=== PATIENT | female | born 1970 ===

== ENCOUNTER 2021-05-28 12:48 | Inpatient (IN) | payer SELFPAY ==
--- NOTE | 2021-05-28 12:57 | Event Note ---
ED Screening Note ED Screening Note: body swelling for two weeks +SOB +CP +abd pain no fever no v/d +nausea no blood stool PMHx DM, HTN on metformin ran out of glimperide ran out of lisinopril has been out for 3 months This initial assessment/diagnostic orders/clinical plan/treatment(s) is/are subject to change based on patients health status, clinical progression and re- assessment by fellow clinical providers in the ED. Further treatment and workup at subsequent clinical providers discretion. Patient/guardian urged not to elope from the ED as their condition may be serious if not clinically assessed and managed. Initial orders include: labs, EKG, CXR, urine
--- NOTE | 2021-05-28 13:22 | XRay Report ---
CHEST 2 VIEWS INDICATION / CLINICAL INFORMATION: SOB, anasarca. COMPARISON: None available. FINDINGS: SUPPORT DEVICES: None. HEART / MEDIASTINUM: No significant abnormality. LUNGS / PLEURA: There is a small left pleural effusion. ADDITIONAL FINDINGS: No significant additional findings. IMPRESSION: 1. Small left pleural effusion. Signer Name: Lincoln Parra MD Signed: 05/28/2021 1:17 PM Workstation Name: [id number]
[2021-05-28 13:42] LABS: Basophils # (Auto) 0.1 K/mm3 (0.0-0.1); Basophils % (Auto) 1.2 % (0.0-1.8); Eosinophils # (Auto) 0.1 K/mm3 (0.0-0.4); Eosinophils % (Auto) 0.9 % (0.0-4.3); Hematocrit 30.9 % (30.3-42.9); Hemoglobin 10.4 gm/dl (10.1-14.3); Lymphocytes # (Auto) 1.7 K/mm3 (1.2-5.4); Lymphocytes % (Auto) 29.3 % (13.4-35.0); Mean Corpuscular HGB Conc 34 % (30-34); Mean Corpuscular Volume 90 fl (79-97); Monocytes # (Auto) 0.4 K/mm3 (0.0-0.8); Monocytes % (Auto) 7.3 % (0.0-7.3); Platelet Count 379 K/mm3 (140-440); Red Blood Count 3.42 M/mm3 (3.65-5.03)
[2021-05-28 13:50] LABS: INR 0.81 (0.87-1.13); Partial Thromboplastin Time 25.2 Sec. (24.2-36.6)
--- NOTE | 2021-05-28 13:50 | Emergency Department Report ---
ED General Adult HPI - General Chief complaint: Dyspnea/Respdistress Stated complaint: Central chest pain. Left-sided visual loss. Lower extremity swelling. Left leg numbness. Weight gain PUI?: No Time Seen by Provider: 05/28/21 12:54 Source: patient, RN notes reviewed Mode of arrival: Ambulatory Limitations: Physical Limitation - History of Present Illness Initial comments: The patient was evaluated in the emergency department for symptoms described in the history of present illness. He/she was evaluated in the context of the global COVID-19 pandemic, which necessitated consideration that the patient might be at risk for infection with the virus that causes COVID-19. Institutional protocols and algorithms that pertain to the evaluation of patients at risk for COVID-19 are in a state of rapid change based on info rmation released by regulatory bodies including the CDC and federal and state organizations. These policies and algorithms were followed during the patient's care in the emergency department. Please note that these policies, procedures and recommendations changed on a rapid basis. The patient is a 50-year-old female. She is not known to myself previously. She reports that she is not . She does not have a local primary care doctor. She reports a history of hypertension and diabetes. She reports that she is maintained on metformin, and glimepiride. She ran out her glimepiride ap proximately 1 month ago. She also reports that she is taking her metformin sporadically, and also reports that she is taking blood pressure medication, although she cannot recall the name of her medication. The patient presents to the ER today with multiple complaints. Her first complaint is lower extremity swelling, and unintentional weight gain. She reports that she was previously 119 pounds, and she is now currently 152 pounds. She believes that this weight gain has happened over the past few weeks to months. She denies travel, surgery, immobilization, oral contraceptive use, DVT/PE risk factors. Her next complaint is chest pain. The chest pain is central. It started yesterday. It is intermittent. It does not radiate anywhere. She denies exacerbating and relieving factors. She has chronic shortness of breath. She denies diaphoresis. Her next complaint is painless monocular left-sided visual loss, over the past 3 months. She reports that she has perception of colors and irregular shapes on the lateral/superior aspect of her left eye, but that she has poor vision in the left eye over the past 3 months. She is supposed to wear glasses but intermittently wears glasses. She also describes 2 to 3 weeks of left leg numbness. She denies significant weakness. She denies bladder/bowel retention or incontinence. She reports pain and difficulty with range of motion in her legs, secondary to her lower extremity swelling. -: Gradual, hour(s), days(s), week(s), month(s) Location: chest, left, right, lower extremity Radiation: other Quality: other Consistency: other Improves with: other Worsens with: other ED Review of Systems ROS: Stated complaint: EDEMA, LEFT SIDE PAIN Other details as noted in HPI Constitutional: malaise. denies: fever Eyes: vision change. denies: eye pain, eye discharge ENT: denies: throat pain Respiratory: cough, shortness of breath Cardiovascular: chest pain, dyspnea on exertion, edema Gastrointestinal: abdominal pain (Abdominal pressure). denies: hematemesis, melena, hematochezia Musculoskeletal: myalgia Neurological: weakness, numbness, other (Change in vision) Hematological/Lymphatic: denies: easy bleeding ED Physical Exam - General Limitations: No Limitations General appearance: alert, anxious, obese - Head Head exam: Present: atraumatic, normocephalic - Eye Eye exam: Present: normal appearance, PERRL, EOMI, other (Right-sided ocular visual acuity intact to finger counting, color perception and reading at a close distance. Left side visual acuity intact to color perception in general shapes.). Absent: nystagmus - ENT ENT exam: Present: normal exam, normal orophraynx, mucous membranes moist, normal external ear exam - Neck Neck exam: Present: normal inspection, full ROM. Absent: tenderness, meningismus - Respiratory Respiratory exam: Present: decreased breath sounds. Absent: respiratory distress, wheezes, rales, rhonchi, stridor - Cardiovascular Cardiovascular Exam: Present: regular rate, normal rhythm, JVD. Absent: bradycardia, tachycardia, rubs, gallop - GI/Abdominal GI/Abdominal exam: Present: soft, distended. Absent: tenderness, guarding, rebound, rigid, pulsatile mass - Extremities Exam Extremities exam: Present: normal inspection, full ROM, pedal edema (3-4+ edema in the bilateral lower extremities), other (2+ pulses noted in the bilateral upper and lower extremities. There is no palpable cord. negative Homans sign. Muscular compartments are soft. The pelvis is stable.). Absent: calf tenderness - Back Exam Back exam: Present: normal inspection. Absent: tenderness, CVA tenderness (R), CVA tenderness (L), paraspinal tenderness, vertebral tenderness - Neurological Exam Neurological exam: Present: alert, oriented X3, normal gait, reflexes normal (Downgoing plantar reflexes bilaterally), other (No facial droop. Tongue midline. Extraocular movements intact bilaterally. Facial sensation intact to light touch in V1, V2, V3 distribution bilaterally. 5 and a 5 strength in 4 extremities. Sensation intact to light touch in 4 extremities.). Absent: motor sensory deficit - Psychiatric Psychiatric exam: Present: normal affect, normal mood - Skin Skin exam: Present: warm, dry, intact, normal color. Absent: rash ED Course - Reevaluation(s) Reevaluation #1: 05/28/21 14:09 Differential diagnosis, including but not limited to: Congestive heart failure, renal insufficiency, hepatic insufficiency, diabetic retinopathy, retinal detachment, hypertensive urgency/emergency, intracranial lesion, lumbar radiculopathy, acute coronary syndrome Assessment and plan: 50-year-old female with multiple complaints. Complaints #1, chest pain. Moderate risk for major adverse cardiac event as per heart score. No DVT/PE risk factors, low risk by Wells criteria for pulmonary embolism. Suspect decompensated congestive heart failure, with possible superimposed renal and/or hepatic insufficiency. Treat the patient's pain, obtain x-ray of the chest, lower extremity DVT study, obtain appropriate laboratory studies and EKG, and reassess. Complaint #2, abdominal distention, with lower extremity swelling. Likely secon fernandez to #1. Appropriate treatment and supportive care, as determined by diagnostics. No abdominal tenderness, rebound or guarding. Complaint #3, painless left-sided central visual loss. GCS 15, symptoms present for months. This is painless. CT scan of the brain, outpatient follow-up. Complaints #4, left lower extremity radicular pain, present for a few weeks. No obvious deficits noted on examination, no pulsatile abdominal mass. Pain medication, supportive care, outpatient follow-up, physical therapy. 05/28/21 14:11 05/28/21 15:12 CT scan of the brain negative for acute findings. X-ray of the chest shows pleural effusion. Laboratory studies reviewed and appreciated. We will admit to the medical service under the care of Rafat Marie Defer to the inpatient team to follow-up duplex study. Admitting diagnosis: Acute congestive heart failure, pleural effusion, acute chest pain, acute hypertensive urgency ED Medical Decision Making - Lab Data Result diagrams: 05/28/21 13:25 05/28/21 13:25 Lab Results 05/28/21 05/28/21 05/28/21 Range/Units 13:25 13:25 13:25 WBC 5.8 (4.5-11.0) K/mm3 RBC 3.42 L (3.65-5.03) M/mm3 Hgb 10.4 (10.1-14.3) gm/dl Hct 30.9 (30.3-42.9) % MCV 90 (79-97) fl MCH 30 (28-32) pg MCHC 34 (30-34) % RDW 13.0 L (13.2-15.2) % Plt Count 379 (140-440) K/mm3 Lymph % (Auto) 29.3 (13.4-35.0) % Divide % (Auto) 7.3 (0.0-7.3) % Eos % (Auto) 0.9 (0.0-4.3) % Baso % (Auto) 1.2 (0.0-1.8) % Lymph # (Auto) 1.7 (1.2-5.4) K/mm3 Divide # (Auto) 0.4 (0.0-0.8) K/mm3 Eos # (Auto) 0.1 (0.0-0.4) K/mm3 Baso # (Auto) 0.1 (0.0-0.1) K/mm3 Seg Neutrophils % 61.3 (40.0-70.0) % Seg Neutrophils # 3.6 (1.8-7.7) K/mm3 PT 12.2 (12.2-14.9) Sec. INR 0.81 L (0.87-1.13) APTT 25.2 (24.2-36.6) Sec. Estimated GFR 59 ml/min BUN/Creatinine Ratio 21 % Total Bilirubin < 0.20 (0.1-1.2) mg/dL Troponin T < 0.010 (0.00-0.029) ng/mL NT-Pro-B Natriuret Pep 2310 H (0-450) pg/mL Albumin/Globulin Ratio 1.1 % Lab Results 05/28/21 05/28/21 05/28/21 Range/Units 13:25 13:25 13:25 WBC 5.8 (4.5-11.0) K/mm3 RBC 3.42 L (3.65-5.03) M/mm3 Hgb 10.4 (10.1-14.3) gm/dl Hct 30.9 (30.3-42.9) % MCV 90 (79-97) fl MCH 30 (28-32) pg MCHC 34 (30-34) % RDW 13.0 L (13.2-15.2) % Plt Count 379 (140-440) K/mm3 Lymph % (Auto) 29.3 (13.4-35.0) % Divide % (Auto) 7.3 (0.0-7.3) % Eos % (Auto) 0.9 (0.0-4.3) % Baso % (Auto) 1.2 (0.0-1.8) % Lymph # (Auto) 1.7 (1.2-5.4) K/mm3 Divide # (Auto) 0.4 (0.0-0.8) K/mm3 Eos # (Auto) 0.1 (0.0-0.4) K/mm3 Baso # (Auto) 0.1 (0.0-0.1) K/mm3 Seg Neutrophils % 61.3 (40.0-70.0) % Seg Neutrophils # 3.6 (1.8-7.7) K/mm3 PT 12.2 (12.2-14.9) Sec. INR 0.81 L (0.87-1.13) APTT 25.2 (24.2-36.6) Sec. Sodium 138 (137-145) mmol/L Potassium 3.7 (3.6-5.0) mmol/L Chloride 103.5 (98-107) mmol/L Carbon Dioxide 22 (22-30) mmol/L Anion Gap 16 mmol/L BUN 21 H (7-17) mg/dL Creatinine 1.0 (0.6-1.2) mg/dL Estimated GFR 59 ml/min BUN/Creatinine Ratio 21 % Glucose 187 H (65-100) mg/dL Calcium 8.1 L (8.4-10.2) mg/dL Total Bilirubin < 0.20 (0.1-1.2) mg/dL AST 14 (5-40) units/L ALT 20 (7-56) units/L Alkaline Phosphatase 77 (35-129) units/L Troponin T < 0.010 (0.00-0.029) ng/mL NT-Pro-B Natriuret Pep 2310 H (0-450) pg/mL Total Protein 4.7 L (6.3-8.2) g/dL Albumin 2.5 L (3.9-5) g/dL Albumin/Globulin Ratio 1.1 % Temperature 97.1 degrees Blood pressure 200/112 mmHg Heart rate 99 bpm Respiration 16 to 18/min Saturating 100% on room air - EKG Data -: EKG Interpreted by Mo EKG shows normal: sinus rhythm Rate: normal - EKG Data When compared to previous EKG there are: previous EKG unavailable 05/28/21 14:13 The EKG is interpreted at 13: 58 Sinus rhythm, rate 92 bpm. Normal axis, normal intervals, motion artifact, poor R wave progression, abnormal EKG, not a STEMI. - Radiology Data Radiology results: pending, report reviewed, image reviewed CHEST 2 VIEWS INDICATION / CLINICAL INFORMATION: SOB, anasarca. COMPARISON: None available. FINDINGS: SUPPORT DEVICES: None. HEART / MEDIASTINUM: No sign ificant abnormality. LUNGS / PLEURA: There is a small left pleural effusion. ADDITIONAL FINDINGS: No significant additional findings. IMPRESSION: 1. Small left pleural effusion. Signer Name: Lincoln Parra MD Signed: 05/28/2021 12:17 PM Workstation Name: [id number] CT head/brain wo con INDICATION / CLINICAL INFORMATION: 50 years Female; left leg numbness, left eye visual loss. TECHNIQUE: Routine CT head without contrast. All CT scans at this location are performed using CT dose reduction for ALARA by means of automated exposure control. COMPARISON: None. FINDINGS: BRAIN / INTRACRANIAL CONTENTS: No acute hemorrhage, mass effect, midline shift, hydrocephalus, or acute, large territorial infarct. No signs of significant atrophy or chronic infarct. No significant white matter abnormality seen. CRANIOCERVICAL JUNCTION: No significant abnormality. ORBITS: No significant abnormality of visualized orbits. SINUSES / MASTOIDS: Mucous retention cyst/polyp is seen in the left maxillary antrum. ADDITIONAL FINDINGS: None. IMPRESSION: 1. No focal mass, hemorrhage, hydrocephalus, or acute, large territorial infarct. Signer Name: Shan Waldron MD, III Signed: 05/28/2021 1:36 PM Workstation Name: [email or web address] Critical care attestation.: If time is entered above; I have spent that time in minutes in the direct care of this critically ill patient, excluding procedure time. ED Disposition Clinical Impression: Acute chest pain, Hypertensive urgency, Swelling of lower extremity, Visual loss, Lumbar radicular pain, Volume overload, Pleural effusion Disposition: 09 ADMITTED INPATIENT Is pt being admited?: Yes Does the pt Need Aspirin: No Condition: Good Instructions: Chest Pain (ED) Heart Score - HEART Score History: Slightly suspicious EKG: Non-specific Age: 45-65 Risk factors: > 3 risk factors or hx of atherosclerotic disease Troponin: < normal limit HEART Score: 4 - EKG Read Time Time EKG Completed: 13:58 EKG Read Time: 13:58 - Critical Actions Critical Actions: 4-6 pts:12-16.6% risk of adverse cardiac event. Should be admitted
[2021-05-28 14:08] LABS: Alanine Aminotransferase 20 units/L (7-56); Albumin 2.5 g/dL (3.9-5); BUN/Creatinine Ratio 21; Blood Urea Nitrogen 21 mg/dL (7-17); Calcium 8.1 mg/dL (8.4-10.2); Hemolysis Index 4
[2021-05-28] MEDS ORDERED: hydrALAZINE 20 MG/1 ML INJ IV STA ×2 (14:13)
[2021-05-28] MEDS ORDERED: NITROGLYCERIN 0.4 MG TAB SUBL SL PRN (14:13)
--- NOTE | 2021-05-28 14:46 | Cat Scan Report ---
CT head/brain wo con INDICATION / CLINICAL INFORMATION: 50 years Female; left leg numbness, left eye visual loss. TECHNIQUE: Routine CT head without contrast. All CT scans at this location are performed using CT dos e reduction for ALARA by means of automated exposure control. COMPARISON: None. FINDINGS: BRAIN / INTRACRANIAL CONTENTS: No acute hemorrhage, mass effect, midline shift, hydrocephalus, or acu te, large territorial infarct. No signs of significant atrophy or chronic infarct. No significant whi te matter abnormality seen. CRANIOCERVICAL JUNCTION: No significant abnormality. ORBITS: No significant abnormality of visualized orbits. SINUSES / MASTOIDS: Mucous retention cyst/polyp is seen in the left maxillary antrum. ADDITIONAL FINDINGS: None. IMPRESSION: 1. No focal mass, hemorrhage, hydrocephalus, or acute, large territorial infarct. Signer Name: Shan Waldron MD, III Signed: 05/28/2021 2:36 PM Workstation Name: [id number]
[2021-05-28] MEDS ORDERED: ASPIRIN 81 MG TAB CHEW PO ONE ×2 (14:50→23:20)
[2021-05-28] MEDS ORDERED: FUROSEMIDE 40 MG/4 ML INJ IV ONE ×2 (14:51→23:30)
[2021-05-28] MEDS ORDERED: ACETAMINOPHEN 325 MG TAB PO STA (14:53)
--- NOTE | 2021-05-28 15:10 | Vascular Lab Report ---
DUPLEX DOPPLER LOWER EXTREMITY VEINS, BILATERAL INDICATION / CLINICAL INFORMATION: lower ext swelling. TECHNIQUE: Duplex doppler imaging was performed through the veins of both lower extremities using venous umm bob and other maneuvers. COMPARISON: None available. FINDINGS: RIGHT COMMON FEMORAL VEIN: Negative. RIGHT FEMORAL VEIN: Negative. RIGHT POPLITEAL VEIN: Negative. RIGHT CALF VEINS: Negative. LEFT COMMON FEMORAL VEIN: Negative. LEFT FEMORAL VEIN: Negative. LEFT POPLITEAL VEIN: Negative. LEFT CALF VEINS: Negative. ADDITIONAL FINDINGS: None. IMPRESSION: 1. No sonographic evidence for DVT in either lower extremity. Signer Name: Lincoln Parra MD Signed: 05/28/2021 3:06 PM Workstation Name: [id number]
[2021-05-28] MEDS ORDERED: MORPHINE 4 MG/1 ML INJ IV ONE (16:26)
[2021-05-28] MEDS ORDERED: ONDANSETRON 4 MG/2 ML INJ IV ONE (16:26)
[2021-05-28] MEDS ORDERED: hydrALAZINE 20 MG/1 ML INJ IV ONE (23:25)
[2021-05-28 23:40] LABS: Bacteria,Urine 2+ /HPF (Negative); Bilirubin,Urine NEG (Negative); Blood,Urine NEG (Negative); Color,Urine Yellow (Yellow); Mucus,Urine FEW /HPF; Urobilinogen,Urine < 2.0 mg/dL (<2.0)
[2021-05-28 23:41] LABS: Protein,Urine >500 mg/dL (Negative)
[2021-05-28] MEDS ORDERED: ACETAMINOPHEN 325 MG TAB PO ONE (23:43)
[2021-05-29] MEDS ORDERED: ACETAMINOPHEN 325 MG TAB PO PRN (01:08)
[2021-05-29] MEDS ORDERED: ONDANSETRON 4 MG/2 ML INJ IV PRN (01:08)
--- NOTE | 2021-05-29 01:36 | History and Physical Report ---
History of Present Illness Date of examination: 05/28/21 Date of admission: 05/28/21 15:13 Chief complaint: Increasing shortness of breath Increasing swelling of both lower extremities History of present illness: 50-year-old [place]ese-speaking female with history of hypertension and diabetes and noncompliance comes in for increasing shortness of breath and weight gain of 30 pounds over the last 3 months. Patient complains of swelling of both the legs and shortness of breath on minimal exertion and orthopnea. Slight chest tightness present. Exacerbating prior factor is exertion relieving factor is rest. No fever or chills. No exposure to COVID. COVID vaccination status was not asked Review of Systems ROS: Stated complaint: EDEMA, LEFT SIDE PAIN Other details as noted in HPI Constitutional: malaise. denies: fever Eyes: vision change. denies: eye pain, eye discharge ENT: denies: throat pain Respiratory: cough, shortness of breath Cardiovascular: chest pain, dyspnea on exertion, edema Gastrointestinal: abdominal pain (Abdominal pressure). denies: hematemesis, melena, hematochezia Musculoskeletal: myalgia Neurological: weakness, numbness, other (Change in vision) Hematological/Lymphatic: denies: easy bleeding Past History Past Medical History: diabetes, hyperthyroidism Past Surgical History: No surgical history Social history: lives with family, full code Family history: hypertension Medications and Allergies Allergies Allergy/AdvReac Type Severity Reaction Status Date / Time No Known Allergies Allergy Unverified 05/28/21 16:22 Active Meds: Active Medications Nitrofurantoin Macrocrystals (Nitrofurantoin Monohyd/M-Cryst 100 Mg Cap) 100 mg PO Q12HR SANDY Nitroglycerin (Nitroglycerin 0.4 Mg Tab Subl) 0.4 mg SL .Q5MIN PRN PRN Reason: Chest Pain Valsartan (Valsartan 160mg Tab) 160 mg PO Q12H SANDY Exam - Constitutional Vitals: Temp Pulse Resp BP Pulse Ox 98.6 F 98 H 15 202/112 99 05/28/21 12:56 05/28/21 12:56 05/28/21 12:56 05/28/21 12:56 05/28/21 12:56 General appearance: Present: mild distress, well-nourished - EENT Eyes: Present: PERRL ENT: hearing intact, clear oral mucosa - Neck Neck: Present: supple, normal ROM - Respiratory Respiratory effort: normal Respiratory: bilateral: CTA - Cardiovascular Heart rate: 78 Rhythm: regular Heart Sounds: Present: S1 & S2. Absent: rub, click - Extremities Extremities: no ischemia, pulses intact, pulses symmetrical, No edema Extremity abnormal: edema (4+ pitting edema) Peripheral Pulses: within normal limits - Abdominal General gastrointestinal: Present: soft, non-tender, non-distended, normal bowel sounds Female genitourinary: Present: normal - Integumentary Integumentary: Present: clear, warm, dry - Musculoskeletal Musculoskeletal: gait normal, strength equal bilaterally - Psychiatric Psychiatric: appropriate mood/affect, intact judgment & insight - Neurologic Neurologic: CNII-XII intact, moves all extremities HEART Score - HEART Score EKG: Non-specific Age: 45-65 Risk factors: > 3 risk factors or hx of atherosclerotic disease Troponin: Troponin T < 0.010 ng/mL (0.00-0.029) 05/28/21 13:25 Troponin: < normal limit - Critical Actions Critical Actions: 4-6 pts:12-16.6% risk of adverse cardiac event. Should be admitted Results - Labs CBC & Chem 7: 05/29/21 05:12 05/29/21 05:12 Labs: Laboratory Last Values WBC 5.8 K/mm3 (4.5-11.0) 05/28/21 13:25 RBC 3.42 M/mm3 (3.65-5.03) L 05/28/21 13:25 Hgb 10.4 gm/dl (10.1-14.3) 05/28/21 13:25 Hct 30.9 % (30.3-42.9) 05/28/21 13:25 MCV 90 fl (79-97) 05/28/21 13:25 MCH 30 pg (28-32) 05/28/21 13:25 MCHC 34 % (30-34) 05/28/21 13:25 RDW 13.0 % (13.2-15.2) L 05/28/21 13:25 Plt Count 379 K/mm3 (140-440) 05/28/21 13:25 Lymph % (Auto) 29.3 % (13.4-35.0) 05/28/21 13:25 [place] % (Auto) 7.3 % (0.0-7.3) 05/28/21 13:25 Eos % (Auto) 0.9 % (0.0-4.3) 05/28/21 13:25 Baso % (Auto) 1.2 % (0.0-1.8) 05/28/21 13:25 Lymph # (Auto) 1.7 K/mm3 (1.2-5.4) 05/28/21 13:25 [place] # (Auto) 0.4 K/mm3 (0.0-0.8) 05/28/21 13:25 Eos # (Auto) 0.1 K/mm3 (0.0-0.4) 05/28/21 13:25 Baso # (Auto) 0.1 K/mm3 (0.0-0.1) 05/28/21 13:25 Seg Neutrophils % 61.3 % (40.0-70.0) 05/28/21 13:25 Seg Neutrophils # 3.6 K/mm3 (1.8-7.7) 05/28/21 13:25 PT 12.2 Sec. (12.2-14.9) 05/28/21 13:25 INR 0.81 (0.87-1.13) L 05/28/21 13:25 APTT 25.2 Sec. (24.2-36.6) 05/28/21 13:25 Sodium 138 mmol/L (137-145) 05/28/21 13:25 Potassium 3.7 mmol/L (3.6-5.0) 05/28/21 13:25 Chloride 103.5 mmol/L (98-107) 05/28/21 13:25 Carbon Dioxide 22 mmol/L (22-30) 05/28/21 13:25 Anion Gap 16 mmol/L 05/28/21 13:25 BUN 21 mg/dL (7-17) H 05/28/21 13:25 Creatinine 1.0 mg/dL (0.6-1.2) 05/28/21 13:25 Estimated GFR 59 ml/min 05/28/21 13:25 BUN/Creatinine Ratio 21 % 05/28/21 13:25 Glucose 187 mg/dL (65-100) H 05/28/21 13:25 POC Glucose 62 mg/dL (70-105) L 05/28/21 18:13 Calcium 8.1 mg/dL (8.4-10.2) L 05/28/21 13:25 Total Bilirubin < 0.20 mg/dL (0.1-1.2) 05/28/21 13:25 AST 14 units/L (5-40) 05/28/21 13:25 ALT 20 units/L (7-56) 05/28/21 13:25 Alkaline Phosphatase 77 units/L (35-129) 05/28/21 13:25 Troponin T < 0.010 ng/mL (0.00-0.029) 05/28/21 13:25 NT-Pro-B Natriuret Pep 2310 pg/mL (0-450) H 05/28/21 13:25 Total Protein 4.7 g/dL (6.3-8.2) L 05/28/21 13:25 Albumin 2.5 g/dL (3.9-5) L 05/28/21 13:25 Albumin/Globulin Ratio 1.1 % 05/28/21 13:25 Urine Color Yellow (Yellow) 05/28/21 Unknown Urine Turbidity Slightly-cloudy (Clear) 05/28/21 Unknown Urine pH 7.0 (5.0-7.0) 05/28/21 Unknown Ur Specific [place] 1.013 (1.003-1.030) 05/28/21 Unknown Urine Protein >500 mg/dL (Negative) 05/28/21 Unknown Urine Glucose (UA) >=500 mg/dL (Negative) 05/28/21 Unknown Urine Ketones Neg mg/dL (Negative) 05/28/21 Unknown Urine Blood Neg (Negative) 05/28/21 Unknown Urine Nitrite Neg (Negative) 05/28/21 Unknown Urine Bilirubin Neg (Negative) 05/28/21 Unknown Urine Urobilinogen < 2.0 mg/dL (<2.0) 05/28/21 Unknown Ur Leukocyte Esterase Neg (Negative) 05/28/21 Unknown Urine WBC (Auto) 20.0 /HPF (0.0-6.0) H 05/28/21 Unknown Urine RBC (Auto) 8.0 /HPF (0.0-6.0) 05/28/21 Unknown U Epithel Cells (Auto) 1.0 /HPF (0-13.0) 05/28/21 Unknown Urine Bacteria (Auto) 2+ /HPF (Negative) 05/28/21 Unknown Urine Mucus Few /HPF 05/28/21 Unknown Urine Yeast (Budding) 1+ /HPF 05/28/21 Unknown - Imaging and Cardiology EKG: report reviewed (Normal sinus rhythm no acute ST-T wave changes) Chest x-ray: report reviewed (Small left pleural effusion) Assessment and Plan Advance Directives: Yes (Full code) VTE prophylaxis?: Chemical Plan of care discussed with patient/family: Yes - Patient Problems (1) Hypertensive emergency Current Visit: Yes Status: Acute Plan to address problem: Patient's initial blood pressure was 202/112 Patient initiated on valsartan and Coreg IV hydralazine as needed (2) Acute exacerbation of CHF (congestive heart failure) Current Visit: Yes Status: Acute Qualifiers: Heart failure type: combined systolic and diastolic Qualified Code(s): I50.43 - 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 Plan to address problem: New onset Echocardiogram for ejection fraction and valve function Daily intake output Daily weights Cardiology consult Elevated BNP of 2300 (3) T2DM (type 2 diabetes mellitus) Current Visit: Yes Status: Chronic 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 Patient is full code. Patient acknowledges understanding and agreement with care plan. +30 minutes.
[2021-05-29] MEDS: VALSARTAN 160MG TAB PO SCH ×2 (01:56→22:47)
[2021-05-29] MEDS: NITROFURANTOIN MONOHYD/M-CRYST 100 MG CAP PO SCH ×3 (01:56→22:47)
[2021-05-29] MEDS: POTASSIUM CHLORIDE ER 20 MEQ TAB PO SCH ×2 (01:57→22:46)
[2021-05-29] MEDS ORDERED: carvediloL 6.25 MG TAB PO SCH (02:00)
[2021-05-29] MEDS ORDERED: ASPIRIN 81 MG TAB CHEW PO ONE (02:15)
[2021-05-29] MEDS ORDERED: cloNIDine 0.1 MG TAB PO ONE (06:01)
[2021-05-29 06:28] LABS: Basophils # (Auto) 0.1 K/mm3 (0.0-0.1); Basophils % (Auto) 1.4 % (0.0-1.8); Eosinophils # (Auto) 0.1 K/mm3 (0.0-0.4); Eosinophils % (Auto) 1.1 % (0.0-4.3); Hematocrit 30.7 % (30.3-42.9); Lymphocytes # (Auto) 1.8 K/mm3 (1.2-5.4); Lymphocytes % (Auto) 26.6 % (13.4-35.0); Mean Corpuscular HGB Conc 33 % (30-34); Mean Corpuscular Volume 90 fl (79-97); Monocytes # (Auto) 0.4 K/mm3 (0.0-0.8); Monocytes % (Auto) 6.1 % (0.0-7.3); Platelet Count 357 K/mm3 (140-440); Red Blood Count 3.41 M/mm3 (3.65-5.03); Red Cell Distribution Width 13.2 % (13.2-15.2)
[2021-05-29] MEDS: oxyCODONE /ACETAMINOPHEN 5-325MG TAB PO PRN ×2 (06:44→19:40)
[2021-05-29] MEDS: FUROSEMIDE 40 MG/4 ML INJ IV SCH ×2 (06:44→22:58)
[2021-05-29 06:47] LABS: Creatine Kinase MB 4.5 ng/mL (0.0-4.0)
[2021-05-29 06:53] LABS: Alanine Aminotransferase 22 units/L (7-56); Albumin 2.4 g/dL (3.9-5); BUN/Creatinine Ratio 21; Blood Urea Nitrogen 21 mg/dL (7-17); Calcium 8.5 mg/dL (8.4-10.2); Hemolysis Index 2
[2021-05-29 09:32] LABS: Creatine Kinase MB 4.7 ng/mL (0.0-4.0)
--- NOTE | 2021-05-29 10:10 | Electrocardiograph Report ---
[facility] Test Date: 2021-05-28 Test Time: 13:58:51 Pat Name: LEVY FERGUSON Department: Room: [place] [address] Gender: F Warp Changer: TED : 1970 Requested By: JOHN LIMON Order Number: [id number] Reading MD: Lauro Wetzel Measurements Intervals [place] Rate: 92 P: 49 CA: 153 QRS: 64 QRSD: 85 T: 44 QT: 347 QTc: 431 Interpretive Statements Sinus rhythm No previous ECG available for comparison Electronically Signed On 05-29-2021 10:09:11 EST by Lauro Wetzel
--- NOTE | 2021-05-29 10:36 | Consultation ---
History of Present Illness Consult date: 05/29/21 Consult reason: hypertension, other (Edema) History of present illness: The patient is a 50-year-old woman history of chronic hypertension and diabetes. She has not seen a doctor in 6 months, and has not taken her prescribed medica tions for over 3 months. She presented to the hospital with constitutional symptoms of generalized body pain, headache and on review of systems also reported some lower extremity edema. On presentation to the hospital her blood pressure was 200/112. There was no chest pain, instead she complains of sciatic type pain which starts from the left hip and radiates down the left leg. There is no palpitations. There is no prior cardiac history. In the emergency room, her blood pressure remains elevated at 170 systolic despite treatments with multiple antihypertensives. ECG reported sinus rhythm no acute ischemic changes. On the chest x-ray, there is a normal-sized cardiac silhouette, small left pleural effusion otherwise clear lungs. She is currently awake and alert, feels comfortable no acute distress. As reported, her only current symptom is the description of the sciatic-like pain down her left leg. Past History Past Medical History: diabetes, hypertension Past Surgical History: No surgical history Social history: lives with family, full code Family history: hypertension Medications and Allergies Allergies Allergy/AdvReac Type Severity Reaction Status Date / Time No Known Allergies Allergy Unverified 05/28/21 16:22 Active Meds: Active Medications Acetaminophen (Acetaminophen 325 Mg Tab) 650 mg PO Q4H PRN PRN Reason: Pain MILD(1-3)/Fever >100.5/FERNANDEZ Carvedilol (Carvedilol 6.25 Mg Tab) 6.25 mg PO BID@0800,1700 [facility] Famotidine (Famotidine 20 Mg Tab) 20 mg PO BID SANDY Furosemide (Furosemide 40 Mg/4 Ml Inj) 40 mg IV 0600,1800 SANDY Last Admin: 05/29/21 06:44 Dose: 40 mg Heparin Sodium (Porcine) (Heparin 5,000 Unit/1 Ml Vial) 5,000 unit SUB-Q Q12HR SANDY Morphine Sulfate (Morphine 2 Mg/1 Ml Inj) 2 mg IV Q4H PRN PRN Reason: Pain, Moderate (4-6) Nifedipine (Nifedipine Xl 60 Mg Tab) 60 mg PO QDAY SANDY Nitrofurantoin Macrocrystals (Nitrofurantoin Monohyd/M-Cryst 100 Mg Cap) 100 mg PO Q12HR [facility] Last Admin: 05/29/21 01:56 Dose: 100 mg Nitroglycerin (Nitroglycerin 0.4 Mg Tab Subl) 0.4 mg SL .Q5MIN PRN PRN Reason: Chest Pain Ondansetron HCl (Ondansetron 4 Mg/2 Ml Inj) 4 mg IV Q8H PRN PRN Reason: Nausea And Vomiting Oxycodone/Acetaminophen (Oxycodone /Acetaminophen 5-325mg Tab) 1 tab PO Q6H PRN PRN Reason: Pain, Moderate (4-6) Last Admin: 05/29/21 06:44 Dose: 1 tab Potassium Chloride (Potassium Chloride Er 20 Meq Tab) 20 meq PO Q12H [facility] Last Admin: 05/29/21 01:57 Dose: 20 meq Sodium Chloride (Sodium Chloride 0.9% 10 Ml Flush Syringe) 10 ml IV BID [facility] Last Admin: 05/29/21 01:57 Dose: 10 ml Sodium Chloride (Sodium Chloride 0.9% 10 Ml Flush Syringe) 10 ml IV PRN PRN PRN Reason: LINE FLUSH Valsartan (Valsartan 160mg Tab) 160 mg PO Q12H [facility] Last Admin: 05/29/21 01:56 Dose: 160 mg Review of Systems Cardiovascular: edema, shortness of breath, no chest pain, no orthopnea, no palpitations, no rapid/irregular heart beat, no syncope, no lightheadedness Musculoskeletal: shooting leg pain (Left leg) Physical Examination Vital Signs Temp Pulse Resp BP Pulse Ox 98.6 F 98 H 15 202/112 99 05/28/21 12:56 05/28/21 12:56 05/28/21 12:56 05/28/21 12:56 05/28/21 12:56 General appearance: no acute distress HEENT: Positive: PERRL Neck: Positive: neck supple Cardiac: Positive: Reg Rate and Rhythm Lungs: Positive: clear to auscultation Neuro: Positive: Grossly Intact Abdomen: Positive: Soft Female genitourinary: deferred Skin: Positive: Clear Extremities: Absent: edema Results 05/29/21 05:12 05/29/21 05:12 Cardiac Enzymes 05/28/21 05/29/21 05/29/21 Range/Units 13:25 05:12 05:12 AST 14 15 (5-40) units/L CK-MB (CK-2) 4.5 H (0.0-4.0) ng/mL 05/29/21 Range/Units 05:12 AST (5-40) units/L CK-MB (CK-2) 4.7 H (0.0-4.0) ng/mL Coagulation 05/28/21 Range/Units 13:25 PT 12.2 (12.2-14.9) Sec. INR 0.81 L (0.87-1.13) APTT 25.2 (24.2-36.6) Sec. CBC 05/28/21 05/29/21 Range/Units 13:25 05:12 WBC 5.8 6.6 (4.5-11.0) K/mm3 RBC 3.42 L 3.41 L (3.65-5.03) M/mm3 Hgb 10.4 10.0 L (10.1-14.3) gm/dl Hct 30.9 30.7 (30.3-42.9) % Plt Count 379 357 (140-440) K/mm3 Lymph # (Auto) 1.7 1.8 (1.2-5.4) K/mm3 [place]ores # (Auto) 0.4 0.4 (0.0-0.8) K/mm3 Eos # (Auto) 0.1 0.1 (0.0-0.4) K/mm3 Baso # (Auto) 0.1 0.1 (0.0-0.1) K/mm3 Comprehensive Metabolic Panel 05/28/21 05/29/21 Range/Units 13:25 05:12 Sodium 138 139 (137-145) mmol/L Potassium 3.7 4.4 (3.6-5.0) mmol/L Chloride 103.5 104.6 (98-107) mmol/L Carbon Dioxide 22 23 (22-30) mmol/L BUN 21 H 21 H (7-17) mg/dL Creatinine 1.0 1.0 (0.6-1.2) mg/dL Glucose 187 H 231 H (65-100) mg/dL Calcium 8.1 L 8.5 (8.4-10.2) mg/dL AST 14 15 (5-40) units/L ALT 20 22 (7-56) units/L Alkaline Phosphatase 77 71 (35-129) units/L Total Protein 4.7 L 4.4 L (6.3-8.2) g/dL Albumin 2.5 L 2.4 L (3.9-5) g/dL EKG interpretations - Telemetry EKG Rhythm: Sinus Rhythm Assessment and Plan - Patient Problems (1) Hypertensive emergency Current Visit: Yes Status: Acute Plan to address problem: In addition to current valsartan, will add Procardia XL 60 mg to the patient's regimen for optimal blood pressure control. (2) Edema Current Visit: Yes Status: Acute Plan to address problem: Patient is receiving diuretic therapy, edema is resolved at this time. An echocardiogram will be recommended for left ventricular function assessment and further assessment of the edema. (3) Musculoskeletal pain of left lower extremity Current Visit: Yes Status: Acute Plan to address problem: Patient describes sciatic type left hip pain radiating down the left leg. Will defer to internal medicine and orthopedics for further evaluation and management.
[2021-05-29] MEDS: carvediloL 6.25 MG TAB PO SCH ×2 (13:26→22:47)
[2021-05-29] MEDS: HEPARIN 5,000 UNIT/1 ML VIAL SUB-Q SCH ×2 (13:30→22:58)
[2021-05-29] MEDS: FAMOTIDINE 20 MG TAB PO SCH ×2 (15:42→22:47)
[2021-05-29 16:03] LABS: Creatine Kinase MB 4.1 ng/mL (0.0-4.0)
--- NOTE | 2021-05-30 00:12 | Progress Note ---
Assessment and Plan - Patient Problems (1) Hypertensive emergency Current Visit: Yes Status: Acute Plan to address problem: Patient's initial blood pressure was 202/112 Patient initiated on valsartan and Coreg IV hydralazine as needed Blood pressure improving (2) Acute exacerbation of CHF (congestive heart failure) Current Visit: Yes Status: Acute Qualifiers: Heart failure type: combined systolic and diastolic Qualified Code(s): I50.43 - Acute on chronic combined systolic (congestive) and diastolic (congestive) heart failure Plan to address problem: New onset Echocardiogram for ejection fraction and valve function Daily intake output Daily weights Cardiology consult Elevated BNP of 2300 Echocardiogram pending (3) T2DM (type 2 diabetes mellitus) Current Visit: Yes Status: Chronic 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 Patient is full code. Patient acknowledges understanding and agre ement with care plan. +30 minutes. Subjective Date of service: 05/29/21 Principal diagnosis: CHF exacerbation, anasarca Interval history: 50-year-old Armenian-speaking female with history of hypertension and diabetes and noncompliance comes in for increasing shortness of breath and weight gain of 30 pounds over the last 3 months. Patient complains of swelling of both the legs and shortness of breath on minimal exertion and orthopnea. Slight chest tightness present. Exacerbating prior factor is exertion relieving factor is rest. No fever or chills. No exposure to COVID. COVID vaccination status was not asked 05/29/2021 Still short of breath Pedal edema present Echocardiogram requested Objective - Constitutional Vitals: Vital Signs - 12hr 05/29/21 05/29/21 05/29/21 13:26 13:27 22:47 Pulse Rate 79 79 86 Blood Pressure 199/113 217/116 Blood Pressure 199/113 [Left] General appearance: Present: no acute distress, well-nourished - EENT Eyes: PERRL, EOM intact ENT: hearing intact, clear oral mucosa Ears: bilateral: normal - Neck Neck: supple, normal ROM - Respiratory Respiratory effort: normal Respiratory: bilateral: CTA - Breasts Breasts: normal - Cardiovascular Heart rate: 78 Rhythm: regular Heart Sounds: Present: S1 & S2. Absent: gallop, rub Extremities: pulses intact, No edema, normal color, Full ROM Extremity abnormal: edema (Pedal edema present.) - Gastrointestinal General gastrointestinal: Present: soft, non-tender, non-distended, normal bowel sounds - Genitourinary Female genitourinary: normal - Integumentary Integumentary: clear, warm, dry - Musculoskeletal Musculoskeletal: 1, strength equal bilaterally - Neurologic Neurologic: moves all extremities - Psychiatric Psychiatric: memory intact, appropriate mood/affect, intact judgment & insight - Labs CBC & Chem 7: 05/30/21 05:05 05/30/21 05:05 Labs: Abnormal lab results 05/29/21 05/29/21 05/29/21 Range/Units 05:12 05:12 05:12 RBC 3.41 L (3.65-5.03) M/mm3 Hgb 10.0 L (10.1-14.3) gm/dl BUN 21 H (7-17) mg/dL Glucose 231 H (65-100) mg/dL Total Creatine Kinase 165 H (30-135) units/L CK-MB (CK-2) 4.5 H (0.0-4.0) ng/mL Total Protein 4.4 L (6.3-8.2) g/dL Albumin 2.4 L (3.9-5) g/dL 05/29/21 05/29/21 Range/Units 05:12 15:27 RBC (3.65-5.03) M/mm3 Hgb (10.1-14.3) gm/dl BUN (7-17) mg/dL Glucose (65-100) mg/dL Total Creatine Kinase 172 H 167 H (30-135) units/L CK-MB (CK-2) 4.7 H 4.1 H (0.0-4.0) ng/mL Total Protein (6.3-8.2) g/dL Albumin (3.9-5) g/dL HEART Score - HEART Score EKG: Non-specific Age: 45-65 Risk factors: > 3 risk factors or hx of atherosclerotic disease Troponin: Troponin T < 0.010 ng/mL (0.00-0.029) 05/29/21 15:27 Troponin: < normal limit - Critical Actions Critical Actions: 4-6 pts:12-16.6% risk of adverse cardiac event. Should be admitted
[2021-05-30] MEDS ORDERED: hydrALAZINE 20 MG/1 ML INJ IV PRN (01:09)
[2021-05-30] MEDS: VALSARTAN 160MG TAB PO SCH ×2 (01:32→14:00)
[2021-05-30] MEDS: POTASSIUM CHLORIDE ER 20 MEQ TAB PO SCH ×2 (01:32→14:00)
[2021-05-30] MEDS: NIFEdipine XL 60 MG TAB PO SCH ×2 (01:41→10:00)
[2021-05-30] MEDS: FUROSEMIDE 40 MG/4 ML INJ IV SCH ×2 (06:17→21:02)
[2021-05-30 06:23] LABS: Basophils # (Auto) 0.1 K/mm3 (0.0-0.1); Basophils % (Auto) 2.8 % (0.0-1.8); Eosinophils # (Auto) 0.1 K/mm3 (0.0-0.4); Eosinophils % (Auto) 1.8 % (0.0-4.3); Hematocrit 31.9 % (30.3-42.9); Hemoglobin 10.5 gm/dl (10.1-14.3); Lymphocytes # (Auto) 1.5 K/mm3 (1.2-5.4); Lymphocytes % (Auto) 28.6 % (13.4-35.0); Mean Corpuscular HGB Conc 33 % (30-34); Mean Corpuscular Volume 92 fl (79-97); Monocytes # (Auto) 0.3 K/mm3 (0.0-0.8); Monocytes % (Auto) 5.2 % (0.0-7.3); Platelet Count 343 K/mm3 (140-440); Red Blood Count 3.49 M/mm3 (3.65-5.03); Red Cell Distribution Width 13.3 % (13.2-15.2)
[2021-05-30 06:33] LABS: Calcium 8.1 mg/dL (8.4-10.2)
[2021-05-30] MEDS: HEPARIN 5,000 UNIT/1 ML VIAL SUB-Q SCH ×2 (10:00→23:05)
[2021-05-30] MEDS: DOXAZOSIN 1 MG TAB PO SCH ×2 (12:00→23:04)
[2021-05-30] MEDS: NITROFURANTOIN MONOHYD/M-CRYST 100 MG CAP PO SCH ×2 (12:01→23:06)
[2021-05-30] MEDS: FAMOTIDINE 20 MG TAB PO SCH ×2 (12:01→23:06)
[2021-05-30] MEDS: carvediloL 6.25 MG TAB PO SCH ×2 (12:01→14:00)
--- NOTE | 2021-05-30 13:17 | Progress Note ---
Assessment and Plan - Patient Problems (1) Hypertensive emergency Current Visit: Yes Status: Acute Plan to address problem: In addition to current valsartan and Procardia XL 60 mg we will add Cardura 2 mg twice daily. (2) Edema Current Visit: Yes Status: Acute Plan to address problem: Patient is receiving diuretic therapy, edema is resolved at this time. An echocardiogram will be recommended for left ventricular function assessment and further assessment of the edema. (3) Musculoskeletal pain of left lower extremity Current Visit: Yes Status: Acute Subjective Date of service: 05/30/21 Interval history: Patient has no new cardiac complaints, no cardiac events reported. Blood pressure is still elevated 170s on valsartan and Procardia XL. Objective Vital Signs Pulse Resp BP BP Pulse Ox 05/30/21 02:02 77 16 177/93 97 05/30/21 01:42 83 200/113 05/30/21 01:32 74 200/113 05/30/21 01:30 76 16 200/113 99 05/29/21 22:47 86 217/116 05/29/21 22:30 84 16 217/116 98 05/29/21 13:27 79 199/113 05/29/21 13:26 79 199/113 - Physical Examination HEENT: Positive: PERRL Neck: Positive: neck supple Cardiac: Positive: Reg Rate and Rhythm Lungs: Positive: clear to auscultation Neuro: Positive: Grossly Intact Abdomen: Positive: Soft Skin: Positive: Clear Extremities: Absent: edema - Labs and Meds Cardiac Enzymes 05/29/21 Range/Units 15:27 CK-MB (CK-2) 4.1 H (0.0-4.0) ng/mL CBC 05/30/21 Range/Units 05:05 WBC 5.4 (4.5-11.0) K/mm3 RBC 3.49 L (3.65-5.03) M/mm3 Hgb 10.5 (10.1-14.3) gm/dl Hct 31.9 (30.3-42.9) % Plt Count 343 (140-440) K/mm3 Lymph # (Auto) 1.5 (1.2-5.4) K/mm3 [place] # (Auto) 0.3 (0.0-0.8) K/mm3 Eos # (Auto) 0.1 (0.0-0.4) K/mm3 Baso # (Auto) 0.1 (0.0-0.1) K/mm3 Comprehensive Metabolic Panel 05/30/21 Range/Units 05:05 Sodium 141 (137-145) mmol/L Potassium 4.3 (3.6-5.0) mmol/L Chloride 105.2 (98-107) mmol/L Carbon Dioxide 24 (22-30) mmol/L BUN 22 H (7-17) mg/dL Creatinine 1.0 (0.6-1.2) mg/dL Glucose 204 H (65-100) mg/dL Calcium 8.1 L (8.4-10.2) mg/dL - Imaging and Cardiology EKG: report reviewed (Normal sinus rhythm no acute ST-T wave changes)
[2021-05-30] MEDS ORDERED: DEXTROSE 50% IN WATER (25GM) 50 ML SYRINGE IV PRN (21:40)
[2021-05-30] MEDS: INSULIN REGULAR, HUMAN 100 UNITS/1 ML SUB-Q SCH (23:14)
[2021-05-31] MEDS: MORPHINE 2 MG/1 ML INJ IV PRN ×2 (03:23→16:53)
[2021-05-31] MEDS: VALSARTAN 160MG TAB PO SCH ×2 (07:26→16:49)
[2021-05-31] MEDS: FUROSEMIDE 40 MG/4 ML INJ IV SCH ×2 (07:26→16:49)
[2021-05-31] MEDS: POTASSIUM CHLORIDE ER 20 MEQ TAB PO SCH ×2 (07:26→13:27)
--- NOTE | 2021-05-31 07:39 | Progress Note ---
Assessment and Plan - Patient Problems (1) Hypertensive emergency Current Visit: Yes Status: Acute Plan to address problem: Blood pressure back to normal Patient to be discharged on valsartan and Coreg (2) Acute exacerbation of CHF (congestive heart failure) Current Visit: Yes Status: Acute Qualifiers: Heart failure type: combined systolic and diastolic Qualified Code(s): I50.43 - Acute on chronic combined systolic (congestive) and diastolic (congestive) heart failure Plan to address problem: New onset Echocardiogram for ejection fraction and valve function Daily intake output Daily weights Cardiology consult Elevated BNP of 2300 (3) T2DM (type 2 diabetes mellitus) Current Visit: Yes Status: Chronic 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 [facility] Plan to address problem: Check hemoglobin A1c Coverage for now (4) Malnutrition Current Visit: Yes Status: Chronic Qualifiers: Protein-calorie malnutrition severity: mild Plan to address problem: Dietary supplements Patient advised to take more protein rich food Protein deficiency including albumin may be causing the pedal edema (5) DVT prophylaxis Current Visit: Yes Status: Acute Plan to address problem: On anticoagulation GI prophylaxis (6) Advance care planning Current Visit: Yes Status: Acute Plan to address problem: Disease education conducted care plan discussed, diagnosis discussed prognosis discussed. Patient is full code. Patient acknowledges understanding and agreement with care plan. +30 minutes. Subjective Date of service: 05/30/21 Principal diagnosis: CHF exacerbation, hypertensive emergency, pedal edema Interval history: 50-year-old Malay-speaking female with history of hypertension and diabetes and noncompliance comes in for increasing shortness of breath and weight gain of 30 pounds over the last 3 months. Patient complains of swelling of both the legs and shortness of breath on minimal exertion and orthopnea. Slight chest tightness present. Exacerbating prior factor is exertion relieving factor is rest. No fever or chills. No exposure to COVID. COVID vaccination status was not asked 05/29/2021 Still short of breath Pedal edema present Echocardiogram requested 05/30/2021 Echocardiogram shows ejection fraction of 55 to 60% Normal valve function Shortness of breath is improved but still has pedal edema Blood pressure improved Possible discharge tomorrow Objective - Constitutional Vitals: Vital Signs - 12hr 05/30/21 05/30/21 05/30/21 19:50 20:00 20:10 Temperature Pulse Rate 89 88 Respiratory 11 L 15 Rate Blood Pressure 136/91 136/91 136/91 O2 Sat by Pulse 96 96 98 Oximetry 05/30/21 05/30/21 05/30/21 20:20 20:30 20:40 Temperature Pulse Rate 89 94 H 90 Respiratory 10 L 14 14 Rate Blood Pressure 136/91 136/91 136/91 O2 Sat by Pulse 97 99 94 Oximetry 05/30/21 05/30/21 05/30/21 20:50 21:00 21:10 Temperature Pulse Rate 90 89 89 Respiratory 12 14 11 L Rate Blood Pressure 136/91 136/91 136/91 O2 Sat by Pulse 96 99 96 Oximetry 05/30/21 05/30/21 05/30/21 21:20 21:30 21:40 Temperature Pulse Rate 89 90 89 Respiratory 13 12 20 Rate Blood Pressure 136/91 136/91 136/91 O2 Sat by Pulse 96 97 96 Oximetry 05/30/21 05/30/21 05/30/21 21:58 22:00 22:10 Temperature Pulse Rate 91 H 91 H Respiratory 17 11 L Rate Blood Pressure 136/91 136/91 136/91 O2 Sat by Pulse 97 97 97 Oximetry 05/30/21 05/30/21 05/30/21 22:20 22:30 22:40 Temperature Pulse Rate 89 89 90 Respiratory 11 L 12 12 Rate Blood Pressure 136/91 136/91 136/91 O2 Sat by Pulse 97 97 97 Oximetry 05/30/21 05/30/21 05/30/21 22:50 23:00 23:04 Temperature Pulse Rate 91 H 90 91 H Respiratory 14 11 L Rate Blood Pressure 136/91 136/91 O2 Sat by Pulse 99 96 Oximetry 05/30/21 05/30/21 05/31/21 23:10 23:50 00:00 Temperature Pulse Rate 90 89 Respiratory 11 L 11 L Rate Blood Pressure 136/91 136/91 136/91 O2 Sat by Pulse 99 100 98 Oximetry 05/31/21 05/31/21 05/31/21 00:10 00:20 00:30 Temperature Pulse Rate 89 86 84 Respiratory 13 9 L 9 L Rate Blood Pressure 136/91 136/91 136/91 O2 Sat by Pulse 98 98 97 Oximetry 05/31/21 05/31/21 05/31/21 00:40 00:50 01:00 Temperature Pulse Rate 85 81 83 Respiratory 10 L 9 L 9 L Rate Blood Pressure 136/91 136/91 136/91 O2 Sat by Pulse 99 98 99 Oximetry 05/31/21 05/31/21 05/31/21 01:10 01:20 01:30 Temperature Pulse Rate 85 84 81 Respiratory 10 L 9 L 10 L Rate Blood Pressure 136/91 136/91 136/91 O2 Sat by Pulse 99 98 98 Oximetry 05/31/21 05/31/21 05/31/21 01:40 01:50 02:00 Temperature Pulse Rate 81 82 88 Respiratory 10 L 10 L 10 L Rate Blood Pressure 136/91 136/91 136/91 O2 Sat by Pulse 97 89 98 Oximetry 05/31/21 05/31/21 05/31/21 02:10 02:20 02:30 Temperature Pulse Rate 81 77 81 Respiratory 9 L 10 L 8 L Rate Blood Pressure 136/91 136/91 136/91 O2 Sat by Pulse 98 97 99 Oximetry 05/31/21 05/31/21 03:09 03:34 Temperature 97.5 F L Pulse Rate 87 83 Respiratory 16 Rate Blood Pressure 148/76 116/69 O2 Sat by Pulse 98 97 Oximetry General appearance: Present: no acute distress, well-nourished - EENT Eyes: PERRL, EOM intact ENT: hearing intact, clear oral mucosa Ears: bilateral: normal - Neck Neck: supple, normal ROM - Respiratory Respiratory effort: normal Respiratory: bilateral: CTA - Breasts Breasts: normal - Cardiovascular Heart rate: 78 Rhythm: regular Heart Sounds: Present: S1 & S2. Absent: gallop, rub Extremities: pulses intact, No edema, normal color, Full ROM - Gastrointestinal General gastrointestinal: Present: soft, non-tender, non-distended, normal bowel sounds - Genitourinary Female genitourinary: normal - Integumentary Integumentary: clear, warm, dry - Musculoskeletal Musculoskeletal: 1, strength equal bilaterally - Neurologic Neurologic: moves all extremities - Psychiatric Psychiatric: memory intact, appropriate mood/affect, intact judgment & insight - Labs CBC & Chem 7: 05/30/21 05:05 05/30/21 05:05 Labs: Abnormal lab results 05/30/21 Range/Units 20:09 POC Glucose 362 H (70-105) mg/dL HEART Score - HEART Score EKG: Non-specific Age: 45-65 Risk factors: > 3 risk factors or hx of atherosclerotic disease Troponin: Troponin T < 0.010 ng/mL (0.00-0.029) 05/29/21 15:27 Troponin: < normal limit - Critical Actions Critical Actions: 4-6 pts:12-16.6% risk of adverse cardiac event. Should be admitted
[2021-05-31] MEDS: INSULIN REGULAR, HUMAN 100 UNITS/1 ML SUB-Q SCH ×3 (09:40→16:51)
[2021-05-31] MEDS: FAMOTIDINE 20 MG TAB PO SCH (11:07)
[2021-05-31] MEDS: DOXAZOSIN 1 MG TAB PO SCH (11:08)
[2021-05-31] MEDS: HEPARIN 5,000 UNIT/1 ML VIAL SUB-Q SCH (11:08)
[2021-05-31 11:09] VITALS: BP 95/52
[2021-05-31] MEDS: carvediloL 6.25 MG TAB PO SCH ×2 (11:09→16:49)
[2021-05-31] MEDS: NITROFURANTOIN MONOHYD/M-CRYST 100 MG CAP PO SCH (11:10)
--- NOTE | 2021-05-31 13:42 | Progress Note ---
Assessment and Plan - Patient Problems (1) Hypertensive emergency Current Visit: Yes Status: Acute Plan to address problem: Blood pressure is now stable, 116-130 systolic on the current medical regimen. (2) Edema Current Visit: Yes Status: Acute Plan to address problem: Patient is receiving diuretic therapy, edema is resolved at this time. An echocardiogram has been ordered by me, results are pending. (3) Musculoskeletal pain of left lower extremity Current Visit: Yes Status: Acute Subjective Date of service: 05/31/21 Interval history: Patient is comfortable looks and feels well, blood pressure is much better controlled, with the addition of Cardura to valsartan and Procardia XL. Echocardiogram was ordered by me today, results are pending. Objective Vital Signs Temp Pulse Resp BP Pulse Ox 05/31/21 11:09 83 95/52 05/31/21 11:08 83 95/52 05/31/21 09:33 97.5 F L 83 18 86/45 97 05/31/21 03:34 97.5 F L 83 16 116/69 97 05/31/21 03:09 87 148/76 98 05/31/21 02:30 81 8 L 136/91 99 05/31/21 02:20 77 10 L 136/91 97 05/31/21 02:10 81 9 L 136/91 98 05/31/21 02:00 88 10 L 136/91 98 05/31/21 01:50 82 10 L 136/91 89 05/31/21 01:40 81 10 L 136/91 97 05/31/21 01:30 81 10 L 136/91 98 05/31/21 01:20 84 9 L 136/91 98 05/31/21 01:10 85 10 L 136/91 99 05/31/21 01:00 83 9 L 136/91 99 05/31/21 00:50 81 9 L 136/91 98 05/31/21 00:40 85 10 L 136/91 99 05/31/21 00:30 84 9 L 136/91 97 05/31/21 00:20 86 9 L 136/91 98 05/31/21 00:10 89 13 136/91 98 05/31/21 00:00 89 11 L 136/91 98 05/30/21 23:50 136/91 100 05/30/21 23:10 90 11 L 136/91 99 05/30/21 23:04 91 H 05/30/21 23:00 90 11 L 136/91 96 05/30/21 22:50 91 H 14 136/91 99 05/30/21 22:40 90 12 136/91 97 05/30/21 22:30 89 12 136/91 97 05/30/21 22:20 89 11 L 136/91 97 05/30/21 22:10 91 H 11 L 136/91 97 05/30/21 22:00 91 H 17 136/91 97 05/30/21 21:58 136/91 97 05/30/21 21:40 89 20 136/91 96 05/30/21 21:30 90 12 136/91 97 05/30/21 21:20 89 13 136/91 96 05/30/21 21:10 89 11 L 136/91 96 05/30/21 21:00 89 14 136/91 99 05/30/21 20:50 90 12 136/91 96 05/30/21 20:40 90 14 136/91 94 05/30/21 20:30 94 H 14 136/91 99 05/30/21 20:20 89 10 L 136/91 97 05/30/21 20:10 88 15 136/91 98 05/30/21 20:00 89 11 L 136/91 96 05/30/21 19:50 136/91 96 05/30/21 19:30 83 9 L 136/91 98 05/30/21 19:20 87 12 121/85 98 05/30/21 19:18 87 10 L 121/85 97 05/30/21 19:16 87 10 L 121/85 98 05/30/21 19:00 86 9 L 121/85 98 05/30/21 18:46 83 9 L 131/82 97 05/30/21 18:30 82 13 131/82 98 05/30/21 18:16 84 10 L 107/60 97 05/30/21 18:00 85 18 107/60 96 05/30/21 17:46 82 17 107/60 98 05/30/21 17:30 78 10 L 107/60 96 05/30/21 17:16 77 11 L 107/60 95 05/30/21 17:00 77 11 L 107/60 98 05/30/21 16:46 79 14 107/60 95 05/30/21 16:30 75 9 L 107/60 99 05/30/21 16:16 76 12 107/60 97 05/30/21 16:00 77 12 107/60 95 05/30/21 15:46 75 10 L 107/60 97 05/30/21 15:32 107/60 94 05/30/21 15:00 79 14 107/60 96 05/30/21 14:46 84 12 107/60 97 05/30/21 14:30 75 9 L 107/60 95 05/30/21 14:16 77 9 L 107/60 96 05/30/21 14:00 78 7 L 107/60 96 05/30/21 13:46 83 12 107/60 97 - Physical Examination General: No Apparent Distress HEENT: Positive: PERRL Neck: Positive: neck supple Cardiac: Positive: Reg Rate and Rhythm Lungs: Positive: clear to auscultation Neuro: Positive: Grossly Intact Abdomen: Positive: Soft Skin: Positive: Clear Extremities: Absent: edema - Imaging and Cardiology EKG: report reviewed (Normal sinus rhythm no acute ST-T wave changes)
--- NOTE | 2021-05-31 16:40 | Discharge Summary ---
Providers - Providers Date of Admission: 05/29/21 01:08 Date of discharge: 05/31/21 Attending physician: VERÓNICA CAMPUZANO 05/29/21 01:08 Consult to Physician [CONS] Routine Comment: Consulting Provider: BO SINGH Physician Instructions: Reason For Exam: CHF exacerbation Primary care physician: [employer] Hospitalization Condition: Good Hospital course: Subjective Date of service: 05/30/21 Principal diagnosis: CHF exacerbation, hypertensive emergency, pedal edema Interval history: 50-year-old Korean-speaking female with history of hypertension and diabetes and noncompliance comes in for increasing shortness of breath and weight gain of 30 pounds over the last 3 months. Patient complains of swelling of both the legs and shortness of breath on minimal exertion and orthopnea. Slight chest tightness present. Exacerbating prior factor is exertion relieving factor is rest. No fever or chills. No exposure to COVID. COVID vaccination status was not asked 05/29/2021 Still short of breath Pedal edema present Echocardiogram requested 05/30/2021 Echocardiogram shows ejection fraction of 55 to 60% Normal valve function Shortness of breath is improved but still has pedal edema Blood pressure improved Possible discharge tomorrow 05/31/2021 Echocardiogram shows ejection fraction 55 to 60% Blood pressure under control Blood glucose under control Patient counseled about her diagnosis and prognosis and medications Assessment and Plan - Patient Problems (1) Hypertensive emergency Current Visit: Yes Status: Acute Plan to address problem: Blood pressure back to normal Patient to be discharged on valsartan and Coreg (2) Acute exacerbation of CHF (congestive heart failure) Current Visit: Yes Status: Acute Qualifiers: Heart failure type: combined systolic and diastolic Qualified Code(s): I50.43 - Acute on chronic combined systolic (congestive) and diastolic (congestive) heart failure Plan to address problem: New onset Echocardiogram for ejection fraction and valve function shows normal ejection fraction Daily intake output Daily weights Cardiology consult Elevated BNP of 2300 (3) T2DM (type 2 diabetes mellitus) Current Visit: Yes Status: Chronic Qualifiers: Diabetes mellitus nursing home insulin use: unspecified buttermaker insulin use status Plan to address problem: Check hemoglobin A1c Coverage for now (4) Malnutrition Current Visit: Yes Status: Chronic Qualifiers: Protein-calorie malnutrition severity: mild Plan to address problem: Dietary supplements Patient advised to take more protein rich food Protein deficiency including albumin may be causing the pedal edema (5) DVT prophylaxis Current Visit: Yes Status: Acute Plan to address problem: On anticoagulation GI prophylaxis (6) Advance care planning Current Visit: Yes Status: Acute Plan to address problem: Disease education conducted care plan discussed, diagnosis discussed prognosis discussed. Patient is full code. Patient acknowledges understanding and agreement with care plan. +30 minutes. Disposition: HOME / SELF CARE / HOMELESS Final Discharge Diagnosis (Prints w/discharge instructions): CHF exacerbation. Hypertensive emergency. Type 2 diabetes mellitus. Pedal edema. Hypo albuminemia. Malnutrition Time spent for discharge: 35 minutes - Discharge Diagnoses (1) Hypertensive emergency Status: Acute (2) Acute exacerbation of CHF (congestive heart failure) Status: Acute Qualifiers: Heart failure type: combined systolic and diastolic Qualified Code(s): I50.43 - Acute on chronic combined systolic (congestive) and diastolic (congestive) heart failure (3) T2DM (type 2 diabetes mellitus) Status: Chronic Qualifiers: Diabetes mellitus buttermaker insulin use: unspecified buttermaker insulin use status (4) Malnutrition Status: Chronic Qualifiers: Protein-calorie malnutrition severity: mild (5) DVT prophylaxis Status: Acute (6) Advance care planning Status: Acute Core Measure Documentation - Palliative Care Palliative Care/ Comfort Measures: Not Applicable - Core Measures Any of the following diagnoses?: none Exam - Constitutional Vitals: Temp Pulse Resp BP Pulse Ox 97.5 F L 83 18 95/52 97 05/31/21 09:33 05/31/21 11:09 05/31/21 09:33 05/31/21 11:09 05/31/21 09:33 General appearance: Present: no acute distress, well-nourished - EENT Eyes: Present: PERRL ENT: hearing intact, clear oral mucosa - Neck Neck: Present: supple, normal ROM - Respiratory Respiratory effort: normal Respiratory: bilateral: CTA - Cardiovascular Heart rate: 78 Rhythm: regular Heart Sounds: Present: S1 & S2. Absent: rub, click - Extremities Extremities: no ischemia, pulses intact, pulses symmetrical Extremity abnormal: other (Pedal edema improved) Peripheral Pulses: within normal limits - Abdominal General gastrointestinal: Present: soft, non-tender, non-distended, normal bowel sounds Female genitourinary: Present: normal - Rectal Rectal Exam: deferred - Integumentary Integumentary: Present: clear, warm, dry - Musculoskeletal Musculoskeletal: gait normal, strength equal bilaterally - Psychiatric Psychiatric: appropriate mood/affect, intact judgment & insight - Neurologic Neurologic: CNII-XII intact, moves all extremities Plan Activity: no restrictions Diet: low fat, low cholesterol, low salt Follow up with: PRIMARY CARE, [Primary Care Provider] - 7 Days
[2021-05-31] MEDS: NIFEdipine XL 60 MG TAB PO SCH (16:50)
== END 2021-05-31 18:42 | disposition home or self-care (01) | DRG 291 ==
LOC: ED 12:48 → 4A 15:13 → OBSVTOIN 05-29 01:08 → 4A 05-30 23:08
PROVIDERS: ADMIT Internal Medicine; ATTEND Internal Medicine
DX: I11.0 Hypertensive heart disease with heart failure (principal); I50.43 Acute on chronic combined systolic (congestive) and diastolic (congestive) heart failure; E44.1 Mild protein-calorie malnutrition; I16.1 Hypertensive emergency; J91.8 Pleural effusion in other conditions classified elsewhere; H54.7 Unspecified visual loss; M79.89 Other specified soft tissue disorders; M54.16 Radiculopathy, lumbar region; Z88.8 Allergy status to other drugs, medicaments and biological substances; Z82.49 Family history of ischemic heart disease and other diseases of the circulatory system; E11.9 Type 2 diabetes mellitus without complications; E05.90 Thyrotoxicosis, unspecified without thyrotoxic crisis or storm; Z91.19 Patient's noncompliance with other medical treatment and regimen; Z68.28 Body mass index [BMI] 28.0-28.9, adult
CPT/HCPCS: 36415; 70450; 71046; 80048; 80053; 81001; 82550; 82553; 82962; 83525; 83880; 84484; 85025; 85610; 85730; 87076; 87086; 87186; 93005; 93306; 93970; G0378; J3490; Q9967; J0360; J1644; J1815; J1940; J2270; J2405